=== PATIENT | male | born 1975 ===

== ENCOUNTER 2017-07-20 10:17 | Emergency (ER) | payer OTHER ==
[2017-07-20 10:35] VITALS: BMI 36.8
[2017-07-20 10:38] VITALS: PULSE 78; O2SAT 100
--- NOTE | 2017-07-20 11:09 | ED PDOC ---
HPI: Back Time Seen by Provider: 07/20/17 10:45 Chief Complaint (Nursing): Back Pain Chief Complaint (Provider): back pain History Per: Patient Additional Complaint(s): 42-year-old male with no past medical history presents with left-sided lower back pain ongoing for 1 week. Patient denies fall or trauma but states that he is on his feet a lot at work and does heavy lifting. Patient did not take any medicine for pain relief. He denies fever or chills, denies bowel or bladder dysfunction. PMD: none Past Medical History Reviewed: Historical Data, Nursing Documentation, Vital Signs Vital Signs: Last Vital Signs Temp 98.9 F 07/20/17 10:36 Pulse 78 07/20/17 10:36 Resp 17 07/20/17 10:36 BP 144/93 H 07/20/17 10:36 Pulse Ox 100 07/20/17 10:36 - Medical History PMH: No Chronic Diseases - Surgical History Surgical History: No Surg Hx - Family History Family History: States: No Known Family Hx - Living Arrangements Living Arrangements: With Family - Social History Current smoker - smoking cessation education provided: No Alcohol: Social Drugs: Denies - Home Medications Home Medications: Ambulatory Orders Medication Instructions Recorded Cyclobenzaprine [Cyclobenzaprine 10 mg PO TID PRN #20 tab 07/20/17 HCl] Naproxen [Naprosyn] 500 mg PO BID #20 tab 07/20/17 - Allergies Allergies/Adverse Reactions: Allergies Allergy/AdvReac Type Severity Reaction Status Date / Time No Known Allergies Allergy Verified 07/20/17 10:55 Review of Systems ROS Statement: Except As Marked, All Systems Reviewed And Found Negative Constitutional: Negative for: Fever Cardiovascular: Negative for: Chest Pain Respiratory: Negative for: Cough Genitourinary Male: Negative for: Dysuria, Frequency, Incontinence, Hematuria Musculoskeletal: Positive for: Back Pain (left sides) Physical Exam - Reviewed Nursing Documentation Reviewed: Yes Vital Signs Reviewed: Yes - Physical Exam Appears: Positive for: Well, Non-toxic, No Acute Distress Skin: Positive for: Normal Color. Negative for: Rash Eye Exam: Positive for: Normal appearance Neck: Positive for: Normal Cardiovascular/Chest: Positive for: Regular Rate, Rhythm Respiratory: Positive for: Normal Breath Sounds Gastrointestinal/Abdominal: Positive for: Soft. Negative for: Tenderness Back: Positive for: Vertebral Tenderness (left lower lumbar region), Muscle Spasm (left lower lumbar region). Negative for: L CVA Tenderness, R CVA Tenderness Extremity: Positive for: Normal ROM, Other (able to heel and toe walk) Neurologic/Psych: Positive for: Alert, Oriented - Laboratory Results Urine dip results: Positive for: Protein. Negative for: Leukocyte Esterase, Blood, Nitrate, Ketones, Glucose, Bilirubin - ECG O2 Sat by Pulse Oximetry: 100 Pulse Ox Interpretation: Normal Medical Decision Making Medical Decision Making: Impression: lumbar strain Plan: Urine dip IM toradol Patient states pain is improved after toradol injections. Prescriptions provided for Naprosyn and Flexeril. Patient was referred to clinic for follow- up. Disposition - Clinical Impression Clinical Impression: Back strain - Patient ED Disposition Is Patient to be Admitted: No Counseled Patient/Family Regarding: Studies Performed, Diagnosis, Need For Followup, Rx Given - Disposition Referrals: [facility] [Outside] Disposition: Routine/Home Disposition Time: 11:52 Condition: STABLE Additional Instructions: Take prescription meds as directed as needed for pain. Follow-up with clinic for further evaluation. Prescriptions: Cyclobenzaprine [Cyclobenzaprine HCl] 10 mg PO TID PRN #20 tab PRN Reason: Muscle Spasm Naproxen [Naprosyn] 500 mg PO BID #20 tab Instructions: Low Back Pain (DC), Back Exercises, Muscle Strain Forms: [employer] (Swedish), [facility] ED School/Work Excuse Print Language: KITTITIAN
[2017-07-20 18:11] VITALS: BP 132/76; RESP 18; TEMP 97.8
== END 2017-07-20 13:30 | disposition home or self-care (01) ==
LOC: EDBD → H.ER 10:17
DX: S39.012A Strain of muscle, fascia and tendon of lower back, initial encounter (principal); Y92.89 Other specified places as the place of occurrence of the external cause
CPT/HCPCS: 96372; 99283; J1885

== ENCOUNTER 2017-07-21 11:45 | Emergency (ER) | payer OTHER ==
[2017-07-21 11:50] VITALS: BMI 26.1
[2017-07-21 12:24] VITALS: RESP 18; TEMP 99
[2017-07-21] MEDS ORDERED: Oxycodone/Acetaminophen 5/325 mg Tab PO STA (12:30)
--- NOTE | 2017-07-21 12:33 | ED PDOC ---
HPI: Back Time Seen by Provider: 07/21/17 12:25 Chief Complaint (Nursing): Back Pain Chief Complaint (Provider): Back Pain History Per: Patient History/Exam Limitations: no limitations Onset/Duration Of Symptoms: Days (x 3) Current Symptoms Are (Timing): Still Present Additional History Per: Prior Records Additional Complaint(s): 42-year-old male presents to ED complaining of lower back pain since Monday. Pt reports pain started after repetitive lateral rotations of movements of boxes at work. Pt was seen here yesterday (, 07/20) and was given medications. Pt states he finished medications, but still has persistent pain. Pt notes radiation of burning pain to left thigh. States took unknown medication this morning. PMD: None Past Medical History Reviewed: Historical Data, Nursing Documentation, Vital Signs Vital Signs: Last Vital Signs Temp 99.0 F 07/21/17 12:05 Pulse 95 H 07/21/17 12:05 Resp 18 07/21/17 12:05 BP 153/85 H 07/21/17 12:05 Pulse Ox 98 07/21/17 12:05 - Medical History PMH: No Chronic Diseases - Surgical History Surgical History: No Surg Hx - Family History Family History: States: Unknown Family Hx - Social History Current smoker - smoking cessation education provided: No Alcohol: Social Drugs: Denies - Home Medications Home Medications: Ambulatory Orders Medication Instructions Recorded Cyclobenzaprine [Cyclobenzaprine 10 mg PO TID PRN #20 tab 07/20/17 HCl] Naproxen [Naprosyn] 500 mg PO BID #20 tab 07/20/17 Acetaminophen [Acetaminophen Extra 2 tab PO Q6 PRN #20 tablet 07/21/17 Strength] Naproxen 375 mg PO Q8 PRN #21 tablet 07/21/17 diaZEpam [Valium] 5 mg PO Q8 PRN #4 tab 07/21/17 - Allergies Allergies/Adverse Reactions: Allergies Allergy/AdvReac Type Severity Reaction Status Date / Time No Known Allergies Allergy Verified 07/20/17 10:55 Review of Systems ROS Statement: Except As Marked, All Systems Reviewed And Found Negative Musculoskeletal: Positive for: Back Pain (Lower) Physical Exam - Reviewed Nursing Documentation Reviewed: Yes Vital Signs Reviewed: Yes - Physical Exam Back: Positive for: Other ((+) Tenderness to left lower paralumbar region, (-) bony tenderness) - ECG O2 Sat by Pulse Oximetry: 98 (RA) Pulse Ox Interpretation: Normal Medical Decision Making Medical Decision Making: Time: 12:30 - Percocet 5/325 mg Tab Time: 13:08 Zofran ODT 4 mg PO STAT Upon provider evaluation patient is medically stable, and requires no further treatment in the ED at this time. Patient will be discharged with Rx for Acetaminophen Extra, Valium and Naproxen. Counseling was provided and all questions were answered regarding diagnosis and need for follow up with clinic. There is agreement to discharge plan. Return if symptoms persist or worsen Scribe Attestation: Documented by Madhav Up, acting as a scribe for Ellie Almeida PA-C. Provider Scribe Attestation: All medical record entries made by the Scribe were at my direction and personally dictated by me. I have reviewed the chart and agree that the record accurately reflects my personal performance of the history, physical exam, medical decision making, and the department course for this patient. I have also personally directed, reviewed, and agree with the discharge instructions and disposition. Disposition - Clinical Impression Clinical Impression: Back pain - Patient ED Disposition Is Patient to be Admitted: No - Disposition Referrals: [facility] [Outside] Disposition: Routine/Home Disposition Time: 13:08 Condition: FAIR Prescriptions: Acetaminophen [Acetaminophen Extra Strength] 2 tab PO Q6 PRN #20 tablet PRN Reason: Pain, Severe (8-10) diaZEpam [Valium] 5 mg PO Q8 PRN #4 tab PRN Reason: Pain, Moderate (4-7) Naproxen 375 mg PO Q8 PRN #21 tablet PRN Reason: Pain, Moderate (4-7) Instructions: Low Back Pain in Adults Forms: [employer] (Sinhala), [facility] ED School/Work Excuse Print Language: LATVIAN
[2017-07-21] MEDS ORDERED: Oxycodone/Acetaminophen 5/325 mg Tab ONE (12:45)
[2017-07-21 15:20] VITALS: BP 125/87; PULSE 74; O2SAT 97
== END 2017-07-21 15:30 | disposition home or self-care (01) ==
LOC: H.ER 11:45
DX: M54.5 Low back pain (principal); X50.3XXA Overexertion from repetitive movements, initial encounter; X50.1XXA Overexertion from prolonged static or awkward postures, initial encounter